=== PATIENT | male | born 1935 | race Caucasian/White ===

== ENCOUNTER 2017-12-14 09:06 | Emergency (ER) | payer OTHER ==
[~2017-12-14] VITALS: Ht 154.9 cm; Wt 64.7 kg
[~2017-12-14 09:06] MED LIST: ADULT LOW DOSE81 M1 PO; ATORVASTATIN CA10 MG PO; BENAZEPRIL HCL40 MG PO; CRESTOR20 MG PO; GLIPIZIDE5 MG PO; GLUCOPHAGE1000 MG PO; LEVOFLOXACIN750 MG PO; MOBIC7.5 MG PO; NORVASC5 MG PO; PATANOL OP100 DROP/5 BOTH EYES; PREDNISONE10 MG PO; PROAIR HFA8.5 GM IH; SPIRIVA1 INHALATI IH
[2017-12-14 09:09] VITALS: BP 139/76
== END 2017-12-14 10:16 | disposition left against medical advice (07) ==
LOC: EME 09:06
DX: L02.224 Furuncle of groin (principal); Z53.21 Procedure and treatment not carried out due to patient leaving prior to being seen by health care provider